=== PATIENT | male | born 1990 | race Caucasian/White ===

== ENCOUNTER 2016-07-05 17:40 | Emergency (ER) | payer OTHER ==
[~2016-07-05] VITALS: Ht 175.3 cm; Wt 88.6 kg
[~2016-07-05 17:40] MED LIST: ATARAX,VISTARIL50 MG PO; CLONAZEPAM0.5 MG PO; CLONAZEPAM1 MG PO; CLONIDINE HCL0.1 MG PO; MIRTAZAPINE30 MG PO; PREDNISONE20 MG PO; SUBOXONE 8 MG-1 EAC2 SL; VENLAFAXINE HCL75 M3 PO; VENTOLIN HFA18 GM IH
[2016-07-05] MEDS ORDERED: NARCAN4 MG NS (20:28)
[2016-07-05 20:34] VITALS: BP 00/00
== END 2016-07-05 20:37 | disposition left against medical advice (07) ==
LOC: EME → EDBD 17:40 → EME 20:37
DX: T42.4X1A Poisoning by benzodiazepines, accidental (unintentional), initial encounter (principal); T40.2X1A Poisoning by other opioids, accidental (unintentional), initial encounter; Y92.009 Unspecified place in unspecified non-institutional (private) residence as the place of occurrence of the external cause; R00.0 Tachycardia, unspecified; F11.20 Opioid dependence, uncomplicated; F17.200 Nicotine dependence, unspecified, uncomplicated
CPT/HCPCS: 71010; 93005; 99281; 99284; J2310